=== PATIENT | male | born 1990 | race Caucasian/White ===

== ENCOUNTER 2022-04-19 23:32 | Emergency (ER) | payer OTHER ==
[2022-04-19 23:46] VITALS: BP 121/77; PULSE 84; TEMP 98.2; BMI 24.3
[2022-04-20] MEDS ORDERED: FAMOTIDINE 20 MG TABLET PO ONE (00:25)
[2022-04-20] MEDS ORDERED: MAG HYDROX/AL HYDROX/SIMETH -MYLANTA- ORAL SUSPENSION PO ONE (00:25)
[2022-04-20] MEDS ORDERED: SODIUM CHLORIDE 0.9% 500 ML INFUS.BAG IV ONE (00:27)
[2022-04-20] MEDS ORDERED: MAG HYDROX/AL HYDROX/SIMETH 30 ML UNIT-DOSE CUP ONE (00:41)
[2022-04-20] MEDS ORDERED: FAMOTIDINE 20 MG TABLET ONE (00:41)
[2022-04-20 01:10] LABS: BASO % 0.4 % (0-2.0); EOS % 11.7 % (0-4.5); HEMATOCRIT 40.5 % (35.4-49); LYMPH % 20.9 % (8-40); MCH 30.1 pg (25.7-33.7); MCHC 34.6 g/dl (32.0-35.9); MEAN CELL VOLUME 87.1 fl (80-96); MEAN PLT VOLUME 8.1 fl (7.5-11.1); MONO % 7.5 % (3.8-10.2); NEUT % 59.5 % (42.8-82.8); PLATELET COUNT 247 10^3/uL (134-434); RBC 4.65 M/mm3 (4.00-5.60); RDW 14.1 % (11.9-15.9); WHITE BLOOD COUNT 9.7 K/mm3 (4.0-10.0)
[2022-04-20 01:42] LABS: CALCIUM 9.3 mg/dL (8.5-10.1)
[2022-04-20 01:45] LABS: CREATININE 0.9 mg/dL (0.55-1.3)
[2022-04-20 01:47] LABS: BILIRUBIN,TOTAL 0.3 mg/dL (0.2-1); TOT PROT 7.2 g/dl (6.4-8.2)
== END 2022-04-20 02:26 | disposition home or self-care (01) ==
LOC: JER 23:32
DX: R55 Syncope and collapse (principal)
CPT/HCPCS: 36415; 71045-TC-FY; 80053; 83690; 85025; 93005; 93010; 99285-25